=== PATIENT | female | born 1970 | race Caucasian/White ===

== ENCOUNTER 2017-01-18 19:50 | Emergency (ER) | payer SELFPAY ==
[~2017-01-18] VITALS: Ht 157.5 cm; Wt 50.0 kg
[2017-01-18 19:52] VITALS: BP 127/69; PULSE 78; RESP 16; TEMP 98.7; O2SAT 99
--- NOTE | 2017-01-18 20:03 | PD ---
Physical Exam Date Seen by Provider: Jan 18, 2017 Time Seen by Provider: 20:00 Narrative 46 yo female here for left eye pain and abdominal pain. Pain is mostly on the front of abdomen. Going on for a couple of weeks. Pain is 8/10. Not taken tests. No chest pain or SOB. abdominal pain is diffused. Patient looks much younger than stated age of 46. No blurry vision. No loss of vision. Denies BM or urinary symptoms. Vital signs stable in triage. Awaiting bed placement. Data Data Last Documented VS Vital Signs Date Time Temp Pulse Resp B/P Pulse Ox O2 Delivery O2 Flow Rate FiO2 01/18/17 19:52 98.7 78 16 127/69 99 Room Air [facility] Medical Record Reviewed: Yes Supervised Visit with ANISH: Larry Pro Jan 18, 2017 20:03
--- NOTE | 2017-01-18 22:20 | PD ---
HPI Chief Complaint: Abdominal Pain Time Seen by Provider: 21:56 Travel History International Travel<30 days: No Contact w/Intl Traveler<30days: No Traveled to known affect area: No History of Present Illness HPI PATIENT POINTS TO HER SUPRAPUBIC AREA, STATES THAT HAS NOT HAD HER NORMAL PERIOD EITHER, AND HAS HAD MINIMAL SUPRAPUBIC PAIN, CRAMPY IN NATURE, NO VAG BLEEDING, NO DIARRHEA, BUT DOES HAVE A VAGINAL CLOUDY DISCHARGE WITH FISHY SMELL...HOWEVER PT DECLINES PELVIC EXAMINATION AT THIS TIME, AND WOULD RATHER JUST HAVE UA AND PATIENT STATES THAT SHE WILL FOLLOW UP WITH HER OBGYN FOR FURTHER EVALUATION OF HER VAGINAL DISCHARGE. HER MAIN CONCERN TODAY IS TO CHECK AND SEE THAT SHE IS NOT PFSH Past Medical History Medical History: Denies Significant Hx Tetanus Vaccination: Unknown Influenza Vaccination: No ?: Not LMP: 12/23/16 Past Surgical History Surgical History: No Previous Surgery Social History Alcohol Use: No Tobacco Use: No Substance Use: No Allergies-Medications (Allergen,Severity, Reaction): Coded Allergies: No Known Allergies (Unverified , 01/18/17) Reported Meds & Prescriptions Reported Meds & Active Scripts Active No Active Prescriptions or Reported Medications Review of Systems Except as stated in HPI: all other systems reviewed are Neg Genitourinary: Positive: Urgency, Dysuria, Discharge Physical Exam Narrative GENERAL: SKIN: Warm and dry. HEAD: Atraumatic. Normocephalic. EYES: Pupils equal and round. No scleral icterus. No injection or drainage. ENT: No nasal bleeding or discharge. Mucous membranes pink and moist. NECK: Trachea midline. No JVD. CARDIOVASCULAR: Regular rate and rhythm. RESPIRATORY: No accessory muscle use. Clear to auscultation. Breath sounds equal bilaterally. GASTROINTESTINAL: Abdomen soft, non-tender, nondistended. NO REBOUND/GUARDING/ RIGIDITY MUSCULOSKELETAL: Extremities without clubbing, cyanosis, or edema. No obvious deformities. NEUROLOGICAL: Awake and alert. No obvious cranial nerve deficits. Motor grossly within normal limits. Five out of 5 muscle strength in the arms and legs. Normal speech. PSYCHIATRIC: Appropriate mood and affect; insight and judgment normal. Data Data Last Documented VS Vital Signs Date Time Temp Pulse Resp B/P Pulse Ox O2 Delivery O2 Flow Rate FiO2 01/18/17 19:52 98.7 78 16 127/69 99 Room Air Orders Urinalysis - C+S If Indicated (01/18/17 22:06) Ed Urine Pregnancytest Poc (01/18/17 22:06) Labs Laboratory Tests Test 01/18/17 22:15 Urine Color YELLOW Urine Turbidity HAZY Urine pH 5.5 Urine Specific [place] 1.018 Urine Protein NEG mg/dL Urine Glucose (UA) NEG mg/dL Urine Ketones 10 mg/dL Urine Occult Blood NEG Urine Nitrite NEG Urine Bilirubin NEG Urine Urobilinogen LESS THAN 2.0 MG/DL Urine Leukocyte Esterase LARGE Urine RBC 4 /hpf Urine WBC 7 /hpf Urine Squamous Epithelial 10 /hpf Cells Urine Amorphous Sediment RARE Urine Bacteria RARE /hpf Urine Mucus FEW /lpf Microscopic Urinalysis Comment CULT NOT INDICATED MDM Medical Decision Making Medical Screen Exam Complete: Yes Emergency Medical Condition: Yes Differential Diagnosis UTI V BACT VAGINITIS V RELATED Narrative Course WILL RESPECT PATIENT WISHES (PT DID STATE THAT IF SHE WILL AGREE AND CONSENT TO A PELVIC EXAM AT THAT TIME)...NEG , MILD UTI ON UA WILL D/C HOME Diagnosis Primary Impression: UTI Patient Instructions: General Instructions, Urinary Tract Infection in Women ( ED) Scripts Fluconazole (Diflucan)150 Mg [id number] Mg PO ONCE #2 TAB Ref 0 Prov:Tyrell Moilna MD 01/18/17 Metronidazole (Flagyl)500 Mg [id number] Mg PO TID #21 TAB Prov:Tyrell Molina MD 01/18/17 Ciprofloxacin 500 Mg [id number] Mg PO BID #14 TAB Prov:Tyrell Molina MD 01/18/17 Disposition: 01 DISCHARGE HOME Condition: Stable Tyrell Molina MD Jan 18, 2017 22:19
[2017-01-18 22:32] LABS: BACTERIA, URINE RARE /hpf; BLOOD, URINE NEG (NEG); COMMENT (UR) CULT NOT INDICATED; CULTURE IF INDICATED CULT NOT INDICATED; GLUCOSE,URINE NEG (NEG); KETONE, URINE 10 mg/dL (NEG); MUCUS URINE FEW /lpf (OCC); NITRITE,URINE NEG (NEG); PH, URINE 5.5 (5.0-8.5); SQUAMOUS EPITHELIAL CELL URINE 10 /hpf (0-5); URINE COLOR YELLOW (YELLW/STRAW)
[2017-01-18] MEDS ORDERED: CIPR500T2 PO (23:16)
[2017-01-18] MEDS ORDERED: DIFL150T PO (23:16)
[2017-01-18] MEDS ORDERED: METR-1 PO (23:16)
== END 2017-01-19 00:21 | disposition home or self-care (01) ==
LOC: NEPC 19:50
DX: N39.0 Urinary tract infection, site not specified (principal)
CPT/HCPCS: 81001; 84703; 99284